=== PATIENT | female | born 1985 | race African-American/Black ===

== ENCOUNTER 2023-02-09 23:17 | Inpatient (IN) | payer OTHER ==
[2023-02-09] MEDS ORDERED: fentaNYL 50 mcg/mL 1 mL Vial ONE (23:24)
[2023-02-09] MEDS ORDERED: HYDROmorphone 0.5 MG/0.5 ML SYRINGE ONE (23:26)
[2023-02-09] MEDS ORDERED: Ondansetron PF 4 MG/2 ML Vial ONE (23:56)
[2023-02-09] MEDS ORDERED: CEFAZOLIN 2 GM VIAL ONE (23:57)
[2023-02-09] MEDS ORDERED: Boostrix 0.5 ML (Tdap) VIAL (>/=7 yrs of age) ONE (23:57)
[2023-02-10] MEDS ORDERED: Ketamine 50 MG/ML (10ML VIAL) ONE
[2023-02-10 00:44] LABS: #Monocytes 0.9 thou/uL (0.11-0.59); #Neutrophils 6.9 thou/uL (1.40-6.50); %Basophils 0.4 % (0.0-1.0); %Eosinophils 0.4 % (0.0-10.0); %Lymphocytes 29.3 % (21.0-51.0); %Monocytes 8.2 % (0.0-10.0); %Neutrophils 61.4 % (42.0-75.0); Hematocrit 40.7 % (36.0-47.0); Hemoglobin 13.4 g/dL (12.0-16.0); Mean Corpuscular HGB CONC 32.9 g/dL (32.0-36.0); Mean Corpuscular Hemoglobin 30.7 pg (27.0-31.0); Mean Corpuscular Volume 93.3 fl (78.0-98.0); Mean Platelet Volume 10.6 fL (7.4-10.4); Platelet Count 321 10x3/uL (130-400); RBC Distribution Width 13.9 % (11.5-14.5); Red Blood Cell (RBC) Count 4.36 mill/uL (4.20-5.40); White Blood Cell (WBC) Count 11.2 10x3/uL (4.8-10.8)
[2023-02-10 00:57] LABS: Prothrombin Time 13.5 sec (12.0-14.7)
[2023-02-10 00:58] LABS: PTT 25.8 sec (22.9-36.1)
[2023-02-10 01:06] LABS: ALT (SGPT) 55 U/L (8-55); AST (SGOT) 96 U/L (5-34); Albumin 4.5 g/dL (3.5-5.0); Alcohol 208.2 mg/dL (Less than 10); Alkaline Phosphatase 77 U/L (40-110); Anion Gap 17 mmol/L (10-20); BUN (Urea Nitrogen) 4 mg/dL (7.0-18.7); Bilirubin, Total 0.4 mg/dL (0.2-1.2); Calc. Creatinine Clearance 0 mL/min (70-130); Carbon Dioxide 19 mmol/L (22-29); Chloride 106 mmol/L (98-107); Estimated GFR 95; Globulin 3.3 g/dL (2.4-3.5); Glucose 87 mg/dL (70-105); Potassium 3.3 mmol/L (3.5-5.1); Protein, Total 7.8 g/dL (6.0-8.3); Sodium 139 mmol/L (136-145)
[2023-02-10] MEDS ORDERED: Morphine 4 MG/ML VIAL ONE (03:17)
[2023-02-10 04:00] VITALS: BMI 35.3
[2023-02-10] MEDS: Morphine 2 MG/ML VIAL SLOW IVP PRN ×2 (04:05→09:41)
[2023-02-10] MEDS: Sodium Chloride 0.9% 1,000 ML IV SCH ×2 (04:05→19:25)
[2023-02-10] MEDS: Acetaminophen 500 MG TAB PO SCH ×3 (04:18→18:42)
[2023-02-10] MEDS: traMADol HCl 50 MG TAB PO SCH ×3 (05:55→18:43)
[2023-02-10] MEDS ORDERED: Morphine 4 MG/ML VIAL SLOW IVP SCH (06:00)
[2023-02-10] MEDS ORDERED: Ondansetron ODT 4 MG TAB PO PRN (07:23)
[2023-02-10] MEDS ORDERED: traMADol HCl 50 MG TAB PO PRN (07:24)
[2023-02-10] MEDS ORDERED: CEFAZOLIN 2 GM in Sodium Chloride 0.9% 100 ML IVPB SCH ×2 (08:00→11:30)
[2023-02-10] MEDS: Famotidine 20 MG TAB PO SCH ×2 (09:39→20:44)
[2023-02-10] MEDS: Cyclobenzaprine 10 MG TAB PO PRN ×2 (09:39→20:44)
[2023-02-10 10:15] LABS: Pregnancy Test - Urine (BHCG) Negative (Negative); Pregu Control Background? CLEAR/WHITE (CLR/WHITE); Pregu Control Bar Appear? YES (CONTROL BAR); Specific Gravity 1.006 (1.002-1.036)
[2023-02-10] MEDS ORDERED: Midazolam HCl 2 mg/2 ml Vial ONE ×2 (11:38→12:00)
[2023-02-10] MEDS ORDERED: fentaNYL 50 mcg/mL 1 mL Vial ONE ×2 (11:38→11:44)
[2023-02-10] MEDS: Polyethylene Glycol 3350 17 GM Packet PO SCH (11:55)
[2023-02-10] MEDS: Senokot S 8.6-50 MG TAB PO SCH ×2 (11:56→20:44)
[2023-02-10] MEDS ORDERED: Ropivacaine 0.5% HCl/PF (150 MG/30 ML VIAL) ONE (12:00)
[2023-02-10] MEDS ORDERED: Ropivacaine 2% HCl/PF (20 MG/10 ML VIAL) ONE (12:00)
[2023-02-10] MEDS ORDERED: fentaNYL PF 100 MCG/2 ML SYRINGE ONE (12:00)
[2023-02-10] MEDS ORDERED: Lidocaine 1% PF 5 ML VIAL ONE (12:26)
[2023-02-10] MEDS ORDERED: Dexamethasone 20 MG/5 ML VIAL ONE (12:26)
[2023-02-10] MEDS ORDERED: Ondansetron PF 4 MG/2 ML Vial ONE (12:26)
[2023-02-10] MEDS ORDERED: PROPOFOL 200 MG/20 ML VIAL ONE (12:26)
[2023-02-10] MEDS ORDERED: Sevoflurane 250 ML INH ANEST BOTTLE ONE (13:52)
[2023-02-10] MEDS ORDERED: Bupivacaine HCl 0.5%/Epinephrine 1:200,000/PF 30 ml Vial ONE (14:08)
[2023-02-10] MEDS ORDERED: Promethazine HCl 25 MG/ML VIAL IM PRN (14:29)
[2023-02-10] MEDS ORDERED: Ondansetron HCl/PF 4 MG/2 ML Vial IVP PRN (14:29)
[2023-02-10] MEDS: CEFAZOLIN 2 GM in Sodium Chloride 0.9% 100 ML IVPB SCH (18:31)
[2023-02-11] MEDS: Acetaminophen 500 MG TAB PO SCH ×3 (00:46→11:52)
[2023-02-11] MEDS: traMADol HCl 50 MG TAB PO SCH ×3 (00:47→11:51)
[2023-02-11] MEDS: CEFAZOLIN 2 GM in Sodium Chloride 0.9% 100 ML IVPB SCH (01:18)
[2023-02-11 05:17] LABS: #Monocytes 0.6 thou/uL (0.11-0.59); #Neutrophils 12.5 thou/uL (1.40-6.50); %Basophils 0.1 % (0.0-1.0); %Lymphocytes 9.4 % (21.0-51.0); %Neutrophils 85.9 % (42.0-75.0); Hematocrit 38.7 % (36.0-47.0); Hemoglobin 12.6 g/dL (12.0-16.0); Mean Corpuscular HGB CONC 32.6 g/dL (32.0-36.0); Mean Corpuscular Hemoglobin 30.4 pg (27.0-31.0); Mean Corpuscular Volume 93.3 fl (78.0-98.0); Mean Platelet Volume 10.7 fL (7.4-10.4); Platelet Count 261 10x3/uL (130-400); RBC Distribution Width 14.2 % (11.5-14.5); Red Blood Cell (RBC) Count 4.15 mill/uL (4.20-5.40); White Blood Cell (WBC) Count 14.5 10x3/uL (4.8-10.8)
[2023-02-11 05:34] LABS: PTT 26.1 sec (22.9-36.1)
[2023-02-11 05:42] LABS: Anion Gap 13 mmol/L (10-20); BUN (Urea Nitrogen) 5 mg/dL (7.0-18.7); Calc. Creatinine Clearance 145 mL/min (70-130); Calcium 8.6 mg/dL (7.8-10.44); Carbon Dioxide 23 mmol/L (22-29); Chloride 105 mmol/L (98-107); Estimated GFR 98; Glucose 166 mg/dL (70-105); Potassium 3.9 mmol/L (3.5-5.1); Sodium 137 mmol/L (136-145)
[2023-02-11 08:24] VITALS: TEMP 98.2
[2023-02-11] MEDS: Senokot S 8.6-50 MG TAB PO SCH (08:33)
[2023-02-11] MEDS: Polyethylene Glycol 3350 17 GM Packet PO SCH (08:33)
[2023-02-11] MEDS: Famotidine 20 MG TAB PO SCH (08:34)
[2023-02-11] MEDS: Cyclobenzaprine 10 MG TAB PO PRN ×2 (08:52→16:33)
[2023-02-11] MEDS: Sodium Chloride 0.9% 1,000 ML IV SCH (14:07)
[2023-02-11] MEDS ORDERED: HYDROcodone/Acetaminophen 5/325 mg Tablet PO PRN (14:11)
[2023-02-11 16:10] VITALS: BP 139/73
== END 2023-02-11 17:05 | disposition home or self-care (01) | DRG 494 ==
LOC: ERS 23:17 → SJJU 02-10 00:53
PROVIDERS: ADMIT Specialist; ATTEND Specialist
PROC: 3E0T3BZ Introduction of Anesthetic Agent into Peripheral Nerves and Plexi, Percutaneous Approach (ICD-10-PCS; 2023-02-10)
PROC: 0QSJ04Z Reposition Right Fibula with Internal Fixation Device, Open Approach (ICD-10-PCS; principal; 2023-02-11)
PROC: 0QSG04Z Reposition Right Tibia with Internal Fixation Device, Open Approach (ICD-10-PCS; 2023-02-11)
DX: S82.841B Displaced bimalleolar fracture of right lower leg, initial encounter for open fracture type I or II (principal); W01.0XXA Fall on same level from slipping, tripping and stumbling without subsequent striking against object, initial encounter; F10.129 Alcohol abuse with intoxication, unspecified; Z98.51 Tubal ligation status; Z88.6 Allergy status to analgesic agent; Z90.49 Acquired absence of other specified parts of digestive tract; Z87.891 Personal history of nicotine dependence; Y92.009 Unspecified place in unspecified non-institutional (private) residence as the place of occurrence of the external cause
CPT/HCPCS: 27818; 36415; 71045; 80048; 80053; 80307; 81025; 85025; 85610; 85730; 90471; 90715; 93005; 96365; 96375; 99152; 99156; C1713; C1769; C1874; J1100; J1170; J1650; J2250; J2270; J2272; J2405; J2704; J2795; J3010; J3490; J7050

== ENCOUNTER 2023-06-11 15:41 | Outpatient (CLI) | payer OTHER ==
[2023-06-11 18:04] LABS: #Eosinphils 0.2 10x3/uL (0.0-0.5); #Monocytes 0.4 10x3/uL (0.0-1.1); %Basophils 0.3 % (0.0-2.0); %Eosinophils 1.8 % (0.0-6.0); %Lymphocytes 35.4 % (18.0-47.0); %Monocytes 4.2 % (0.0-10.0); %Neutrophils 58.1 % (40.0-75.0); Hematocrit 39.4 % (34.9-44.5); Hemoglobin 13.1 g/dL (12.0-15.5); Mean Corpuscular HGB CONC 33.2 g/dL (32.0-36.0); Mean Corpuscular Hemoglobin 30.1 pg (27.0-33.0); Mean Corpuscular Volume 90.6 fl (81.6-98.3); Mean Platelet Volume 11.2 fl (7.4-10.4); Platelet Count 277 10x3/uL (150-450); RBC Distribution Width 14.5 % (11.5-14.5); Red Blood Cell (RBC) Count 4.35 10x6/uL (3.90-5.03); White Blood Cell (WBC) Count 10.4 10x3/uL (3.5-10.5)
[2023-06-11 18:08] LABS: Anion Gap 14 mmol/L (10-20); BUN (Urea Nitrogen) 8 mg/dL (7.0-18.7); CRP (Inflammatory) Less than 0.50 mg/dL (= or < 0.5); Calc. Creatinine Clearance 0 mL/min (70-130); Calcium 9.1 mg/dL (7.8-10.44); Carbon Dioxide 22 mmol/L (22-29); Chloride 107 mmol/L (98-107); Estimated GFR 97; Glucose 125 mg/dL (70-105); Potassium 3.7 mmol/L (3.5-5.1); Sodium 139 mmol/L (136-145)
== END 2023-06-11 15:42 | disposition home or self-care (01) ==
LOC: LABBT 15:41
PROVIDERS: ATTEND Orthopaedic Surgery
DX: Z01.812 Encounter for preprocedural laboratory examination (principal); T84.84XA Pain due to internal orthopedic prosthetic devices, implants and grafts, initial encounter; T81.83XD Persistent postprocedural fistula, subsequent encounter
CPT/HCPCS: 80048; 85025; 86140

== ENCOUNTER 2023-06-13 06:55 | Inpatient (IN) | payer OTHER ==
[2023-06-11 16:19] VITALS: BMI 31.6
[2023-06-13] MEDS ORDERED: CEFAZOLIN 2 GM VIAL ONE (09:47)
[2023-06-13] MEDS ORDERED: Sodium Chloride 0.9% 100 ML ONE (09:47)
[2023-06-13] MEDS ORDERED: Lidocaine 2% PF 5 ML VIAL ONE (10:07)
[2023-06-13] MEDS ORDERED: HYDROmorphone 2 MG/ML VIAL ONE (10:07)
[2023-06-13] MEDS ORDERED: PROPOFOL 20 ML ONE ×2 (10:07→10:15)
[2023-06-13] MEDS ORDERED: Ondansetron PF 4 MG/2 ML Vial ONE ×2 (10:09→10:23)
[2023-06-13] MEDS ORDERED: Lidocaine 1% PF 5 ML VIAL ONE (10:09)
[2023-06-13] MEDS ORDERED: Ketorolac Tromethamine 30 MG/ML VIAL ONE ×2 (10:09→10:23)
[2023-06-13] MEDS ORDERED: Dexamethasone 20 MG/5 ML VIAL ONE ×2 (10:09→10:23)
[2023-06-13] MEDS ORDERED: PROPOFOL 200 MG/20 ML VIAL ONE (10:09)
[2023-06-13] MEDS ORDERED: HYDROmorphone 2 MG/ML VIAL SLOW IVP PRN (10:46)
[2023-06-13] MEDS ORDERED: PACU-Morphine 4MG/ML VIAL SLOW IVP PRN (10:46)
[2023-06-13] MEDS ORDERED: Ondansetron HCl/PF 4 MG/2 ML Vial IVP PRN (10:46)
[2023-06-13] MEDS ORDERED: Promethazine HCl 25 MG/ML VIAL IM PRN ×2 (10:46→13:32)
[2023-06-13] MEDS ORDERED: Fentanyl 250 MCG/5 ML VIAL ONE (11:12)
[2023-06-13] MEDS ORDERED: HYDROmorphone 0.5 MG/0.5 ML SYRINGE ONE (12:09)
[2023-06-13] MEDS ORDERED: Morphine 2 MG/ML VIAL SLOW IVP PRN (13:32)
[2023-06-13] MEDS ORDERED: Morphine 4 MG/ML VIAL SLOW IVP PRN (13:32)
[2023-06-13] MEDS ORDERED: Milk Of Magnesia 30 ML UDCUP PO PRN (13:32)
[2023-06-13] MEDS ORDERED: Bisacodyl 10 MG SUPP PR PRN (13:32)
[2023-06-13] MEDS ORDERED: fentaNYL 50 mcg/mL 1 mL Vial SLOW IVP PRN (13:32)
[2023-06-13] MEDS ORDERED: HYDROcodone/Acetaminophen 5/325 mg Tablet PO PRN (13:32)
[2023-06-13] MEDS ORDERED: Ondansetron PF 4 MG/2 ML Vial SLOW IVP PRN (13:32)
[2023-06-13] MEDS ORDERED: traMADol HCl 50 MG TAB PO PRN (13:32)
[2023-06-13] MEDS ORDERED: Acetaminophen 325 MG TAB PO PRN (13:32)
[2023-06-13 14:14] LABS: #Eosinphils 0.1 thou/uL (0.0-0.7); #Monocytes 0.1 thou/uL (0.11-0.59); #Neutrophils 8.7 thou/uL (1.40-6.50); %Basophils 0.2 % (0.0-1.0); %Eosinophils 0.5 % (0.0-10.0); %Lymphocytes 14.8 % (21.0-51.0); %Monocytes 1.3 % (0.0-10.0); %Neutrophils 82.9 % (42.0-75.0); Hematocrit 39.4 % (36.0-47.0); Hemoglobin 12.9 g/dL (12.0-16.0); Mean Corpuscular HGB CONC 32.7 g/dL (32.0-36.0); Mean Corpuscular Hemoglobin 30.3 pg (27.0-31.0); Mean Corpuscular Volume 92.5 fl (78.0-98.0); Mean Platelet Volume 10.8 fL (7.4-10.4); Platelet Count 284 10x3/uL (130-400); RBC Distribution Width 14.8 % (11.5-14.5); Red Blood Cell (RBC) Count 4.26 mill/uL (4.20-5.40); White Blood Cell (WBC) Count 10.5 10x3/uL (4.8-10.8)
[2023-06-13] MEDS: traMADol HCl 50 MG TAB PO PRN ×2 (14:45→20:55)
[2023-06-13] MEDS: Ketorolac Tromethamine 30 MG/ML VIAL IVP SCH (18:14)
[2023-06-13] MEDS: CEFAZOLIN 2 GM in Sodium Chloride 0.9% 100 ML IVPB SCH (18:15)
[2023-06-13] MEDS: Aspirin 81 mg Enteric Coated Tablet PO SCH (20:10)
[2023-06-14] MEDS: Ketorolac Tromethamine 30 MG/ML VIAL IVP SCH ×4 (00:18→17:37)
[2023-06-14] MEDS: CEFAZOLIN 2 GM in Sodium Chloride 0.9% 100 ML IVPB SCH ×3 (03:02→17:37)
[2023-06-14] MEDS: traMADol HCl 50 MG TAB PO PRN (03:03)
[2023-06-14] MEDS: Aspirin 81 mg Enteric Coated Tablet PO SCH ×2 (09:16→20:45)
[2023-06-14] MEDS: HYDROcodone/Acetaminophen 5/325 mg Tablet PO PRN ×2 (14:11→20:55)
[2023-06-15] MEDS: CEFAZOLIN 2 GM in Sodium Chloride 0.9% 100 ML IVPB SCH (02:54)
[2023-06-15] MEDS: HYDROcodone/Acetaminophen 5/325 mg Tablet PO PRN ×4 (05:41→20:26)
[2023-06-15] MEDS: Aspirin 81 mg Enteric Coated Tablet PO SCH ×2 (09:04→19:31)
[2023-06-15] MEDS: traMADol HCl 50 MG TAB PO PRN (19:31)
[2023-06-16] MEDS: traMADol HCl 50 MG TAB PO PRN ×2 (03:41→21:09)
[2023-06-16] MEDS: HYDROcodone/Acetaminophen 5/325 mg Tablet PO PRN ×5 (04:22→23:17)
[2023-06-16] MEDS: Aspirin 81 mg Enteric Coated Tablet PO SCH ×2 (08:34→19:39)
[2023-06-16] MEDS: Cephalexin 250 MG CAP PO SCH ×3 (12:56→23:17)
[2023-06-16] MEDS: Gabapentin 300 MG CAP PO SCH (19:39)
[2023-06-17] MEDS: Cephalexin 250 MG CAP PO SCH ×3 (05:02→17:45)
[2023-06-17] MEDS: HYDROcodone/Acetaminophen 5/325 mg Tablet PO PRN ×5 (05:03→21:40)
[2023-06-17] MEDS: Gabapentin 300 MG CAP PO SCH ×2 (08:58→21:40)
[2023-06-17] MEDS: Aspirin 81 mg Enteric Coated Tablet PO SCH ×2 (08:58→21:39)
[2023-06-17] MEDS: traMADol HCl 50 MG TAB PO PRN (10:53)
[2023-06-18] MEDS: Cephalexin 250 MG CAP PO SCH ×3 (00:08→11:28)
[2023-06-18] MEDS: HYDROcodone/Acetaminophen 5/325 mg Tablet PO PRN ×2 (04:13→09:17)
[2023-06-18 06:17] VITALS: TEMP 98.5
[2023-06-18] MEDS: Gabapentin 300 MG CAP PO SCH (09:16)
[2023-06-18] MEDS: Aspirin 81 mg Enteric Coated Tablet PO SCH (09:17)
[2023-06-18 12:36] VITALS: BP 151/99
== END 2023-06-18 13:09 | disposition home or self-care (01) | DRG 465 ==
LOC: SDC 06:55 → SURG A 13:05
PROVIDERS: ADMIT Orthopaedic Surgery; ATTEND Orthopaedic Surgery
PROC: 0JBQ0ZZ Excision of Right Foot Subcutaneous Tissue and Fascia, Open Approach (ICD-10-PCS; principal; 2023-06-13)
PROC: 0SPF0JZ Removal of Synthetic Substitute from Right Ankle Joint, Open Approach (ICD-10-PCS; 2023-06-13)
DX: T84.84XA Pain due to internal orthopedic prosthetic devices, implants and grafts, initial encounter (principal); S82.841D Displaced bimalleolar fracture of right lower leg, subsequent encounter for closed fracture with routine healing; F17.200 Nicotine dependence, unspecified, uncomplicated; T81.83XD Persistent postprocedural fistula, subsequent encounter; F10.90 Alcohol use, unspecified, uncomplicated; Z90.89 Acquired absence of other organs; Z98.890 Other specified postprocedural states; Z71.6 Tobacco abuse counseling
CPT/HCPCS: 36415; 85025; 87070; 87205; 97139; J1100; J1170; J1885; J2001; J2405; J2704; J3010; J3490